=== PATIENT | female | born 1995 | race Two or more races ===

== ENCOUNTER 2017-01-24 17:32 | Emergency (ER) | payer OTHER ==
[~2017-01-24] VITALS: Ht 149.9 cm; Wt 95.3 kg
[~2017-01-24 17:32] MED LIST: ACETAMINOPHEN-1 EAC1 ORAL; ALKA-SELTZER B324 MG PO; COLACE100 MG ORAL; FLEET ENEMA133 ML RECTAL; IBUPROFEN800 MG ORAL; NKM; NORCO 5-325 TA1 EACH ORAL; RANITIDINE HCL150 MG PO
--- NOTE | 2017-01-24 18:09 | Emergency Room Report ---
History of Present Illness General Chief Complaint: Lower Extremity Injury Source: Patient Present Illness HPI 21 YO Female presents to the ED c/o Left anterior knee pain, swelling and bruising s/p mechanical slip and fall two days ago. pt. reports previous injury to the same knee. pt states pain is 7/10 in severity and exacerbated with bending the knee and walking. pt. denies dislocation of the knee cap, and pt. denies instability. Denies numbness tingling or loss of sensation or gross motor movements of the extremities, incontinence of bowel or bladder. Denies CP , Palpitations, LOC, AMS, dizziness, Changes in Vision, Sensation, paresthesias , or a sudden severe headache. Allergies: Coded Allergies: Mushroom (Unverified Allergy, Severe, 12/11/14) Patient History Past Medical History: see triage record Past Surgical History: none Pertinent Family History: none Last Menstrual Period: irreg Now: No Reviewed Nursing Documentation: PMH: Agreed, PSxH: Agreed Nursing Documentation-PMH Past Medical History: No History, Except For Review of Systems All Other Systems: negative except mentioned in HPI Physical Exam Vital Signs Date Time Temp Pulse Resp B/P Pulse Ox O2 Delivery O2 Flow Rate FiO2 01/24/17 17:35 97.9 110 18 115/82 Room Air Sp02 EP Interpretation: reviewed, normal General Appearance: no apparent distress, alert, GCS 15, non-toxic Head: normocephalic, atraumatic Eyes: bilateral eye PERRL, bilateral eye normal inspection ENT: hearing grossly normal, normal pharynx, no angioedema, normal voice Neck: full range of motion, supple/symm/no masses Respiratory: lungs clear, normal breath sounds, speaking full sentences Cardiovascular #1: regular rate, rhythm, no edema Musculoskeletal: back normal, gait/station normal, normal range of motion, swelling - left knee, other - bruising noted to the left knee, negative anterior drawer sign. no obvious laxity noted. , tender - anterior left knee ttp Neurologic: alert, oriented x3, responsive, motor strength/tone normal, sensory intact, speech normal Psychiatric: judgement/insight normal, memory normal, mood/affect normal Skin: normal color, no rash, warm/dry, well hydrated, other - bruising and swelling to anterior left knee Medical Decision Making PA Attestation Dr. Pickard is my supervising Physician whom patient management has been discussed with. Diagnostic Impression: Primary Impression: Knee pain, left Qualified Codes: M25.562 - Pain in left knee Additional Impression: Knee effusion, left ER Course Pt. presents to the ED c/o Left anterior knee pain, swelling and bruising s/p mechanical slip and fall two days ago. pt. reports previous injury to the same knee. pt states pain is 7/10 in severity and exacerbated with bending the knee and walking. pt. denies dislocation of the knee cap, and pt. denies instability. Denies numbness tingling or loss of sensation or gross motor movements of the extremities, incontinence of bowel or bladder. Denies CP, Palpitations, LOC, AMS, dizziness, Changes in Vision, Sensation, paresthesias, or a sudden severe headache. Ddx considered but are not limited to Fracture, dislocation, contusion, Sprain/ Strain/Spasm. Vital signs: are WNL, pt. is afebrile H&PE are most consistent with musculoskeletal injury will perform imaging to r/ o fractures/dislocations. ORDERS: - X-ray Left Knee 4 views - negative for obvious acute fx, possible tibial plateau fx , negative for Dislocation, or significant soft tissue injury- per preliminary read in ED by Dr. Pickard - interpretation is scribed by PA. ED INTERVENTIONS: - Motrin PO -Knee Immobilizer Splint applied to the left knee by pump house technician. Pt. remains neurovascularly intact. -Pt. is provided with crutches. DISCHARGE: At this time pt. is stable for d/c to home. Will provide printed patient care instructions, and any necessary prescriptions. Care plan and follow up instructions have been discussed with the patient prior to discharge. Last Vital Signs Date Time Temp Pulse Resp B/P Pulse Ox O2 Delivery O2 Flow Rate FiO2 01/24/17 17:35 97.9 110 18 115/82 Room Air Disposition: HOME, SELF-CARE Condition: Stable Scripts Ibuprofen* (MOTRIN*) 600 Mg Tablet 600 MG ORAL THREE TIMES A DAY, #30 TAB 0 Refills Prov: Dee Dee Borges 01/24/17 Patient Instructions: Knee Effusion, [id number] Additional Instructions: Take medications as directed. Follow up with a Primary Care Provider in 3-5 days, even if your symptoms have resolved. --Please review list of primary care clinics, if you do not already have a primary care provider Return sooner to ED if new symptoms occur, or current symptoms become worse. Do not drink alcohol, drive, or operate heavy machinery while taking [ ] as this may cause drowsiness. - Please note that this Emergency Department Report was dictated using [employer] perforator operator technology software, occasionally this can lead to erroneous entry secondary to interpretation by the dictation equipment. Dee Dee Borges Jan 24, 2017 18:09
[2017-01-24] MEDS ORDERED: IBUPROFEN600 MG ORAL (19:06)
[2017-01-24 19:20] VITALS: BP 106/68
--- NOTE | 2017-01-25 10:50 | Diagnostic Imaging Report ---
Indication: PAIN Technique: 3 views of the left knee Comparison: None Findings:No acute fractures. No dislocations. No suprapatellar effusion. Joint spaces are preserved. Impression:Negative
== END 2017-01-24 19:20 | disposition home or self-care (01) ==
LOC: EMR 18:43
DX: M25.462 Effusion, left knee (principal); M25.562 Pain in left knee
CPT/HCPCS: 29530; 99283